=== PATIENT | male | born 1960 | race Hispanic/Latino ===

== ENCOUNTER 2017-06-05 20:57 | Emergency (ER) | payer OTHER ==
[~2017-06-05] VITALS: Ht 172.7 cm; Wt 88.5 kg
[2017-06-05] MEDS ORDERED: ASPIR-LOW81 MG PO (21:05)
[2017-06-05] MEDS ORDERED: LISINOPRIL10 MG PO (21:05)
[2017-06-05] MEDS ORDERED: METFORMIN HCL500 MG PO (21:05)
== END 2017-06-05 23:50 | disposition home or self-care (01) ==
LOC: ED 20:57
DX: S01.81XA Laceration without foreign body of other part of head, initial encounter (principal); S40.011A Contusion of right shoulder, initial encounter; E11.9 Type 2 diabetes mellitus without complications; I10 Essential (primary) hypertension; Z79.82 Long term (current) use of aspirin; Z79.899 Other long term (current) drug therapy; Z79.84 Long term (current) use of oral hypoglycemic drugs; V80.010A Animal-rider injured by fall from or being thrown from horse in noncollision accident, initial encounter
CPT/HCPCS: 12014; 70450; 70486; 72125; 73030; 90471; 90715; 99284